=== PATIENT | male | born 1980 | race Caucasian/White ===

== ENCOUNTER 2024-03-03 19:33 | Observation (INO) | payer OTHER ==
[2024-03-03 20:57] LABS: #Basophils 0.05 10x3/uL (0.0-0.2); %Basophils 0.5 % (0.0-1.0); %Eosinophils 3.1 % (0.0-10.0); %Monocytes 6.1 % (0.0-10.0); %Neutrophils 57.9 % (42.0-75.0); Hematocrit 43.9 % (42.0-52.0); Hemoglobin 14.9 g/dL (14.0-18.0); Mean Corpuscular HGB CONC 33.9 g/dL (32.0-36.0); Mean Corpuscular Hemoglobin 30.7 pg (27.0-31.0); Mean Corpuscular Volume 90.3 fL (78.0-98.0); Mean Platelet Volume 10.1 fL (7.4-10.4); Platelet Count 291 10x3/uL (130-400); RBC Distribution Width 11.6 % (11.5-14.5); Red Blood Cell (RBC) Count 4.86 mill/uL (4.70-6.10)
[2024-03-03 21:02] LABS: Actual Bicarbonate (HCO3v) 27.9 mEq/L (22-28); Analyzer IN Cardio ER; Base Excess 1.6 mEq/L (-2.0 to +3.0); Calcium, Ionized (venous) 1.15 mmol/L (1.16-1.32); Chloride (VBG) 102 mmol/L (98-106); Hematocrit-VBG 47 % (42.0-52.0); Hemoglobin (Hb) 15.9 g/dL (13.2-17.3); Potassium (VBG) 4.06 mmol/L (3.70-5.30); Sodium 141 mmol/L (133-146); pH (venous) 7.364 (7.32-7.43)
[2024-03-03 21:12] LABS: ALT (SGPT) 39 U/L (8-55); AST (SGOT) 23 U/L (5-34); Albumin 3.9 g/dL (3.5-5.0); Alkaline Phosphatase 85 U/L (40-110); Anion Gap 12 mmol/L (10-20); BUN (Urea Nitrogen) 13 mg/dL (8.9-20.6); Bilirubin, Total 0.5 mg/dL (0.2-1.2); Calc. Creatinine Clearance 0 mL/min (70-130); Calcium 9.2 mg/dL (7.8-10.44); Carbon Dioxide 26 mmol/L (22-29); Chloride 107 mmol/L (98-107); Estimated GFR 109; Glucose 89 mg/dL (70-105); Potassium 4.1 mmol/L (3.5-5.1); Protein, Total 6.9 g/dL (6.0-8.3); Sodium 141 mmol/L (136-145)
[2024-03-03 21:12] LABS: Acetaminophen Less than 10 mcg/mL (Less than 10); Alcohol Less than 10.0 mg/dL (Less than 10); Magnesium 2.1 mg/dL (1.6-2.6); Salicylate Less than 8.0 mg/dL (Less than 8.0)
[2024-03-03 21:15] LABS: Troponin I Less than 0.010 ng/mL (< 0.028)
[2024-03-03 21:22] LABS: Bacteria/HPF None Seen HPF (None Seen); Bilirubin Negative (Negative); Blood, Urine 2+ (Negative); CAUTI Indications for Culture Alt mental st,lethar; Clarity Clear (Clear); Glucose, Urine (Dipstick) Normal (Negative); Ketone, Urine Negative (Negative); Leukocyte Negative Leu/uL (Negative); Nitrite Negative (Negative); Protein, Urine (Dipstick) Negative (Neg-Trace); RBC/HPF 21-50 HPF (0-3); Specific Gravity, Urine 1.017 (1.002-1.036); Squamous Epithelial 0-3 HPF (0-3); WBC/HPF 0-3 HPF (0-3)
[2024-03-03 21:24] LABS: Amphetamine Not Detected (NotDetected); Barbiturates Screen Not Detected (NotDetected); Benzodiazepine Screen Not Detected (NotDetected); Cocaine Metabolite Screen Not Detected (NotDetected); Methadone Not Detected (NotDetected); Methamphetamine Not Detected (NotDetected); Opiate Screen Not Detected (NotDetected); Oxycodone Screen Not Detected (NotDetected); Phencyclidine (PCP) Not Detected (NotDetected); THC/Cannabinoid Screen Not Detected (NotDetected); Tricyclic Screen Not Detected (NotDetected)
[2024-03-03 21:25] LABS: Urine Culture Reflex No No
[2024-03-04] MEDS ORDERED: Lorazepam 2 MG/ML VIAL ONE (01:24)
[2024-03-04] MEDS ORDERED: levETIRAcetam 500 MG (5 mL) VIAL ONE ×3 (01:24→01:29)
[2024-03-04] MEDS ORDERED: Lorazepam 2 MG/ML VIAL SLOW IVP PRN (02:22)
[2024-03-04] MEDS ORDERED: Acetaminophen 650 MG Suppository PR PRN (02:23)
[2024-03-04] MEDS ORDERED: Calcium Carbonate 500 MG ChewTAB PO PRN (02:23)
[2024-03-04] MEDS ORDERED: Ondansetron ODT 4 MG TAB PO PRN (02:23)
[2024-03-04] MEDS ORDERED: Ondansetron PF 4 MG/2 ML Vial IVP PRN (02:23)
[2024-03-04] MEDS: Dextrose 5%-Lactated Ringers 1,000 ML IV SCH (03:55)
[2024-03-04] MEDS: Acetaminophen 325 MG TAB PO SCH (06:01)
[2024-03-04 06:17] LABS: #Basophils Less than 0.03 10x3/uL (0.0-0.2); %Basophils 0.2 % (0.0-1.0); %Eosinophils 2.9 % (0.0-10.0); %Lymphocytes 38.9 % (21.0-51.0); %Monocytes 5.3 % (0.0-10.0); %Neutrophils 52.6 % (42.0-75.0); Hematocrit 41.3 % (42.0-52.0); Hemoglobin 13.9 g/dL (14.0-18.0); Mean Corpuscular HGB CONC 33.7 g/dL (32.0-36.0); Mean Corpuscular Hemoglobin 30.1 pg (27.0-31.0); Mean Corpuscular Volume 89.4 fL (78.0-98.0); Mean Platelet Volume 10.1 fL (7.4-10.4); Platelet Count 247 10x3/uL (130-400); RBC Distribution Width 11.7 % (11.5-14.5); Red Blood Cell (RBC) Count 4.62 mill/uL (4.70-6.10)
[2024-03-04 06:44] LABS: Anion Gap 11 mmol/L (10-20); BUN (Urea Nitrogen) 12 mg/dL (8.9-20.6); Calc. Creatinine Clearance 189 mL/min (70-130); Calcium 8.6 mg/dL (7.8-10.44); Carbon Dioxide 22 mmol/L (22-29); Chloride 111 mmol/L (98-107); Estimated GFR 117; Glucose 106 mg/dL (70-105); Potassium 3.8 mmol/L (3.5-5.1); Sodium 140 mmol/L (136-145)
[2024-03-04] MEDS: Famotidine/PF 20 mg/2ml Vial SLOW IVP SCH (11:15)
[2024-03-04] MEDS: Famotidine 20 MG TAB PO SCH (11:44)
[2024-03-04] MEDS ORDERED: Acetaminophen 325 MG TAB ONE (12:48)
[2024-03-04] MEDS: Ziprasidone 20 MG VIAL IM SCH (20:57)
[2024-03-04] MEDS: Sterile Water 10 ML VIAL FS SCH (20:57)
[2024-03-05 04:21] LABS: #Basophils 0.04 10x3/uL (0.0-0.2); %Basophils 0.6 % (0.0-1.0); %Eosinophils 4.3 % (0.0-10.0); %Lymphocytes 46.3 % (21.0-51.0); %Monocytes 6.4 % (0.0-10.0); %Neutrophils 42.3 % (42.0-75.0); Hematocrit 40.9 % (42.0-52.0); Hemoglobin 13.5 g/dL (14.0-18.0); Mean Corpuscular Hemoglobin 30.1 pg (27.0-31.0); Mean Corpuscular Volume 91.1 fL (78.0-98.0); Platelet Count 264 10x3/uL (130-400); RBC Distribution Width 11.8 % (11.5-14.5); Red Blood Cell (RBC) Count 4.49 mill/uL (4.70-6.10)
[2024-03-05 05:02] LABS: Anion Gap 14 mmol/L (10-20); BUN (Urea Nitrogen) 9 mg/dL (8.9-20.6); Calc. Creatinine Clearance 185 mL/min (70-130); Calcium 8.6 mg/dL (7.8-10.44); Carbon Dioxide 22 mmol/L (22-29); Chloride 110 mmol/L (98-107); Estimated GFR 115; Glucose 91 mg/dL (70-105); Magnesium 2.1 mg/dL (1.6-2.6); Sodium 142 mmol/L (136-145)
[2024-03-05] MEDS: Lorazepam 2 MG/ML VIAL SLOW IVP SCH (10:35)
[2024-03-05] MEDS: Sterile Water 0 ML ONE (10:41)
[2024-03-05] MEDS: Polyethylene Glycol 3350 17 GM Packet PO SCH (14:55)
[2024-03-05 16:16] VITALS: BP 132/73; TEMP 98
== END 2024-03-05 17:26 ==
LOC: ERS 19:33 → EEVIPCON 19:33 → ERHOLD 03-04 00:55 → 2NO 03-04 15:48
PROVIDERS: ADMIT Student in an Organized Health Care Education/Training Program; ATTEND Internal Medicine
DX: R41.82 Altered mental status, unspecified (principal); G35 Multiple sclerosis; E78.5 Hyperlipidemia, unspecified; Z88.8 Allergy status to other drugs, medicaments and biological substances; Z79.51 Long term (current) use of inhaled steroids; Z79.899 Other long term (current) drug therapy
CPT/HCPCS: 36415; 36416; 51701; 70450; 70551; 71045; 72125; 72170; 74018; 80048; 80053; 80306; 80307; 81001; 82140; 82805; 83605; 83735; 84484; 85025; 93005; 96374; 96375; 96376; G0378; J1953; J2060; J3486; J3490